=== PATIENT | male | born 1945 | race Caucasian/White ===

== ENCOUNTER → 2016-12-03 | Outpatient (CLI) | payer MEDICARE, BC ==
[2016-12-03 12:43] LABS: CHCM 33.5; Eosinophils # (A) 0.1 k/uL (0-0.7); HDW 2.96; RDW 13.5 % (11.5-15.5)
[2016-12-03 12:59] LABS: Basophils % (A) 0 %; CH 29.3; Eosinophils % (A) 2 %; HCT 35.5 % (39.0-53.0); HGB 11.8 gm/dL (13.0-17.5); Luc # (Auto) 0.16; Luc % (Auto) 3; Lymphocytes # (A) 0.9 k/uL (1.0-4.8); Lymphocytes % (A) 14 %; MCH 29.3 pg (25.0-35.0); MCHC 33.3 g/dL (31.0-37.0); Monocytes # (A) 0.3 k/uL (0-1.0); Monocytes % (A) 4 %; Neutrophils # (A) 4.6 k/uL (1.3-7.7); Neutrophils % (A) 77 %; RBC 4.03 m/uL (4.30-5.90); WBC 5.9 k/uL (3.8-10.6); WBC (Perox) 6.42
== END | disposition home or self-care (01) ==
LOC: LABPAT 11:45
PROVIDERS: ATTEND Urology
DX: Z01.810 Encounter for preprocedural cardiovascular examination (principal); N40.3 Nodular prostate with lower urinary tract symptoms; N13.8 Other obstructive and reflux uropathy; E11.9 Type 2 diabetes mellitus without complications; R35.0 Frequency of micturition; I10 Essential (primary) hypertension
CPT/HCPCS: 36415; 80053; 84439; 84443; 85025; 87077; 87086; 87186; 93005

== ENCOUNTER → 2016-12-03 | Outpatient (CLI) | payer MEDICARE, BC ==
[2016-12-03 12:44] LABS: ALT 48 U/L (21-72); AST 37 U/L (17-59); Alkaline Phosphatase 66 U/L (38-126); Anion Gap 15 mmol/L; Blood Urea Nitrogen 25 mg/dL (9-20); Calcium 9.6 mg/dL (8.4-10.2); Carbon Dioxide 25 mmol/L (22-30); Chloride 97 mmol/L (98-107); Glucose 197 mg/dL (74-99); Non-African American GFR(MDRD) >60 (>60 ml/min/1.73 sqM); Potassium 4.5 mmol/L (3.5-5.1); Sodium 137 mmol/L (137-145); Total Bilirubin 0.6 mg/dL (0.2-1.3); Total Protein 6.9 g/dL (6.3-8.2)
== END | disposition home or self-care (01) ==
LOC: LABWHC1 11:43
PROVIDERS: ATTEND Internal Medicine Endocrinology, Diabetes & Metabolism
DX: E11.65 Type 2 diabetes mellitus with hyperglycemia (principal)
CPT/HCPCS: 36415; 80053; 84439; 84443

== ENCOUNTER 2016-12-09 06:22 | Day surgery (SDC) | payer MEDICARE, BC ==
[2016-12-02 13:18] VITALS: BMI 35.2
[~2016-12-09 06:22] MED LIST: FAMOTIDINE 20 MG/2 ML VIAL IV PRN; GENTAMICIN 120 MG in SODIUM CHLORIDE 0.9% 100 ML IVPB ONE; HYDROmorphone 1 MG/ML 1 ML SYRINGE IVP PRN; LACTATED RINGERS 1,000 ML IV SCH; LIDOCAINE 1% 20 ML VIAL (10MG/ML) FOR IV START INTRADERMA PRN; ceFAZolin 2 GM in SODIUM CHLORIDE 0.9% 100 ML IVPB ONE
[2016-12-09 06:50] LABS: Glucose,Whole Blood 183 mg/dL (75-99)
[2016-12-09] MEDS ORDERED: fentaNYL (PF) 50 MCG/ML 2 ML AMP ONE (07:38)
[2016-12-09] MEDS ORDERED: PHENYLEPHRINE-0.9% NACL SYG 1 MG/10 ML SYRINGE ONE (07:38)
[2016-12-09] MEDS ORDERED: PROPOFOL 10 MG/ML 20 ML VIAL IV ONE (07:38)
[2016-12-09] MEDS ORDERED: MIDAZOLAM 2 MG/2 ML VIAL ONE (07:38)
[2016-12-09] MEDS ORDERED: LACTATED RINGERS 1,000 ML IV ONE (09:50)
[2016-12-09] MEDS: SODIUM CHLORIDE 0.9% IRRIGATIO 3,000 ML IRRIGATION SCH ×4 (10:00→19:23)
--- NOTE | 2016-12-09 10:21 | P.OP ---
Date of Procedure: 12/09/16 Preoperative Diagnosis: BPH with Obstruction, Urinary Retention Postoperative Diagnosis: Same Procedure(s) Performed: Cystoscopy, Bipolar Transurethral Resection of Prostate (TURP) Anesthesia: spinal Surgeon: Fidel Holliday Estimated Blood Loss (ml): 50 IV fluids (ml): 950 Pathology: other (prostate chips) Condition: stable Disposition: PACU Indications for Procedure: He is a 71 year-old male with progressive urge incontinence despite taking Hytrin and oxybutynin chloride. Cystoscopy revealed a high median prostatic bar , and urodynamic studies show excellent bladder function with detrusor pressures of 92 cm H20. He will thus undergo a TURP, as he has failed medical therapy. Operative Findings: Complete prostatic obstruction with bilobar configuration and high median bar. Description of Procedure: The patient was taken in the operating room and placed in the dorsolithotomy position after being given a spinal anesthetic, The external genitalia was prepped and draped sterilely. The 25-[place] ACMI resectoscope sheath was introduced into the bladder. The bladder was inspected. Both ureteral orifices were of normal anatomic location and configuration, and clear urine effluxed from both. No tumors or foreign bodies were seen. There was evidence of catheter cystitis. Examination of the prostate revealed complete obstruction with a bilobar configuration and a high median bar. Using the bipolar cutting loop, the prostatic floor was resected from the vesical neck up to the verumontanum. the lateral lobes were resected down to the surgical capsule. The resection of the floor floor of the prostate was then completed, proximal to the verumontanum. Lastly, any remaining anterior tissue was resected. Some remaining apical tissue was carefully resected, though this was likely incomplete given that the apex extended well beyond the verumontanum and care was taken not to extend the resection all the way to the external urinary sphincter. The resection was carried down to the surgical capsule in all 4 quadrants. The prostatic fossa was then carefully examined, and any areas of bleeding were controlled with electrocautery. Excellent hemostasis was attained. The resectoscope was withdrawn into the bulbous urethra. The external urinary sphincter remained intact. The prostatic fossa was open. The Zify evacuator was used to remove all prostate chips from the bladder. These were saved and sent for pathologic examination. The resectoscope was removed, and a 22 [place]ian, 3-Way Garza catheter was placed. The return was initially clear, but became bloody and thus continuous bladder irrigation was started using 0.9 normal saline. The return was essentially clear. The patient tolerated the procedure well was taken to the recovery room in stable condition.
[2016-12-09] MEDS ORDERED: ACETAMINOPHEN TAB 325 MG TAB PO PRN (10:22)
[2016-12-09] MEDS ORDERED: MAG HYDROX/AL HYDROX/SIMETH 30 ML CUP PO PRN (10:22)
[2016-12-09] MEDS ORDERED: BELLADONNA-OPIUM 16.2-60 MG 1 EACH SUPP RECTAL PRN (10:22)
[2016-12-09 11:00] LABS: Glucose,Whole Blood 175 mg/dL (75-99)
[2016-12-09] MEDS ORDERED: DEXTROSE 5%-0.45% NACL 1,000 ML IV SCH (11:00)
[2016-12-09] MEDS ORDERED: SODIUM CHLORIDE 0.9% IRRIG 3,000 ML BAG IRRIGATION SCH (11:00)
[2016-12-09] MEDS ORDERED: INSULIN LISPRO (humaLOG) 300 UNIT/3 ML VIAL SQ ONE (11:20)
[2016-12-09 12:03] LABS: Glucose,Whole Blood 194 mg/dL (75-99)
[2016-12-09] MEDS: INSULIN LISPRO (humaLOG) 300 UNIT/3 ML VIAL SQ SCH ×2 (13:19→17:53)
[2016-12-09 13:28] LABS: Hemoglobin A1C 6.6 % (4.2-6.1)
[2016-12-09] MEDS ORDERED: SODIUM CHLORIDE 0.9% IRRIGATIO 3,000 ML IRRIGATION SCH (13:45)
[2016-12-09 16:46] LABS: Glucose,Whole Blood 255 mg/dL (75-99)
[2016-12-09] MEDS ORDERED: INSULIN LISPRO (humaLOG) 300 UNIT/3 ML VIAL SQ SCH (17:30)
[2016-12-09] MEDS: metFORMIN 500 MG TAB PO SCH (17:54)
[2016-12-09] MEDS ORDERED: SODIUM CHLORIDE 0.45% IV SCH (19:30)
[2016-12-09] MEDS ORDERED: SODIUM CHLORIDE 0.45 % 1,000 ML IV SCH (19:30)
[2016-12-09] MEDS ORDERED: SODIUM CHLORIDE 0.45% 1,000 ML IV SCH (19:33)
[2016-12-09 20:44] LABS: Glucose,Whole Blood 188 mg/dL (75-99)
[2016-12-09] MEDS ORDERED: INSULIN GLARGINE 100 UNIT/ML 10 ML VIAL SQ SCH (21:00)
[2016-12-09] MEDS ORDERED: ATORVASTATIN 20 MG TAB PO SCH (21:00)
[2016-12-09] MEDS: OXYBUTYNIN CHLORIDE 5 MG TAB PO SCH (22:10)
[2016-12-09] MEDS: DOCUSATE 100 MG CAP PO SCH (22:10)
[2016-12-10 02:12] VITALS: RESP 16
[2016-12-10] MEDS ORDERED: PANTOPRAZOLE 40 MG TABLET PO SCH (07:30)
[2016-12-10 07:53] LABS: Glucose,Whole Blood 116 mg/dL (75-99)
[2016-12-10] MEDS: OXYBUTYNIN CHLORIDE 5 MG TAB PO SCH (08:20)
[2016-12-10] MEDS: DOCUSATE 100 MG CAP PO SCH (08:20)
[2016-12-10] MEDS: metFORMIN 500 MG TAB PO SCH (08:20)
[2016-12-10] MEDS: INSULIN LISPRO (humaLOG) 300 UNIT/3 ML VIAL SQ SCH ×4 (08:20→12:32)
--- NOTE | 2016-12-10 08:53 | P.DS ---
Providers Expected date of discharge: 12/10/16 Attending physician: Fidel Holliday Primary care physician: Josette Lopez Hospital Course: On the day of admission, the patient underwent an uncomplicated TURP. The postoperative course was unremarkable. He remained afebrile with stable vital signs. On the first postoperative day, the Garza catheter was draining clear yellow urine. Procedures: Cystoscopy, bipolar transurethral resection of prostate in 12/09/2016. Patient Condition at Discharge: Good Plan - Discharge Summary Discharge Medication List Furosemide [Lasix] 40 mg PO DAILY 08/25/16 [History] Insulin Aspart [NovoLOG Flexpen] 14 unit SQ AC-BID 08/25/16 [History] Insulin Aspart [NovoLOG Flexpen] 16 unit SQ AC-SUPPER 08/25/16 [History] Insulin Glargine [Lantus] 34 unit SQ QAM 08/25/16 [History] Insulin Glargine [Lantus] 56 unit SQ HS 08/25/16 [History] Multivitamins, Thera [Multivitamin] 1 tab PO DAILY 08/25/16 [History] RX: Aspirin [Adult Low Dose Aspirin EC] 81 mg PO DAILY 08/25/16 [History] RX: Lisinopril [Zestril] 2.5 mg PO DAILY 08/25/16 [History] RX: Metolazone [Zaroxolyn] 5 mg PO TUSA 08/25/16 [History] RX: Omeprazole 20 mg PO DAILY 08/25/16 [History] RX: Oxybutynin Chloride [Ditropan] 5 mg PO TID 08/25/16 [History] RX: Simvastatin [Zocor] 40 mg PO HS 08/25/16 [History] RX: metFORMIN HCL 1,000 mg PO BID 08/25/16 [History] Ascorbic Acid [Vitamin C] 500 mg PO DAILY 12/02/16 [History] Ferrous Sulfate [Feosol] 325 mg PO DAILY 12/02/16 [History] Follow up Appointment(s)/Referral(s): Fidel Holliday MD [STAFF PHYSICIAN] - 1 Week Activity/Diet/Wound Care/Special Instructions: Discharge home with Garza catheter. Resume preoperative home medications. My office will contact patient regarding follow-up. Discharge Disposition: HOME SELF-CARE
[2016-12-10] MEDS ORDERED: FERROUS SULFATE 325 MG TAB PO SCH (09:00)
[2016-12-10] MEDS ORDERED: LISINOPRIL 2.5 MG TAB PO SCH (09:00)
[2016-12-10] MEDS ORDERED: INSULIN GLARGINE 100 UNIT/ML 10 ML VIAL SQ SCH (09:00)
[2016-12-10] MEDS ORDERED: ASPIRIN 81 MG CHEW PO SCH (09:00)
[2016-12-10] MEDS ORDERED: FUROSEMIDE 40 MG TAB PO SCH (09:00)
[2016-12-10] MEDS ORDERED: ASCORBIC ACID 500 MG TAB PO SCH (09:00)
[2016-12-10 09:28] VITALS: BP 147/65; PULSE 75; TEMP 98.6
[2016-12-10] MEDS ORDERED: MULTIVITAMINS, THERA 1 EACH TAB PO SCH (12:00)
[2016-12-10 12:01] LABS: Glucose,Whole Blood 183 mg/dL (75-99)
[2016-12-11] MEDS ORDERED: METOLAZONE 5 MG TAB PO SCH (09:00)
== END 2016-12-10 15:51 | disposition home or self-care (01) ==
LOC: OR 06:22 → 3SUR 10:00 → OR 12-10 15:51
PROVIDERS: ATTEND Urology
DX: C61 Malignant neoplasm of prostate (principal); R33.8 Other retention of urine; I11.0 Hypertensive heart disease with heart failure; I50.9 Heart failure, unspecified; G47.33 Obstructive sleep apnea (adult) (pediatric); E11.9 Type 2 diabetes mellitus without complications; E78.00 Pure hypercholesterolemia, unspecified; K21.9 Gastro-esophageal reflux disease without esophagitis; M19.90 Unspecified osteoarthritis, unspecified site; R53.1 Weakness; S81.801S Unspecified open wound, right lower leg, sequela; N13.2 Hydronephrosis with renal and ureteral calculous obstruction; I25.2 Old myocardial infarction; Z88.5 Allergy status to narcotic agent; Z88.1 Allergy status to other antibiotic agents; Z88.8 Allergy status to other drugs, medicaments and biological substances; Z79.82 Long term (current) use of aspirin; Z79.4 Long term (current) use of insulin; Z79.84 Long term (current) use of oral hypoglycemic drugs; Z79.899 Other long term (current) drug therapy; Z86.73 Personal history of transient ischemic attack (TIA), and cerebral infarction without residual deficits; Z87.891 Personal history of nicotine dependence; Z83.3 Family history of diabetes mellitus; Z82.49 Family history of ischemic heart disease and other diseases of the circulatory system
CPT/HCPCS: 88305; 83036; 88342; 88341; 52601; J2250; J3010; J1580; J2370; J2704

== ENCOUNTER → 2016-12-28 | Outpatient (CLI) | payer MEDICARE, BC ==
[2016-12-28 08:24] LABS: Blood Urea Nitrogen 32 mg/dL (9-20); Non-African American GFR(MDRD) >60 (>60 ml/min/1.73 sqM)
--- NOTE | 2016-12-28 09:33 | CT ---
EXAMINATION TYPE: CT abdomen pelvis w con DATE OF EXAM: 12/28/2016 9:07 AM COMPARISON: NONE HISTORY: 71 year-old male history of Prostate cancer TECHNIQUE: Contiguous axial scanning of the abdomen and pelvis following administration of 100 ml Omn ipaque 300 IV contrast. Delayed images through the kidneys and coronal/sagittal reconstructions perf ormed. CT DLP: 2035 mGycm Automated exposure control for dose reduction was used. FINDINGS: Heart is borderline to mildly enlarged without pericardial effusion. There is hazy and strandy atelec tasis in both lower lungs without pleural effusion. Small hiatal hernia. No focal liver lesion or biliary ductal dilatation. Portal venous system is patent. There is cholelithiasis with a dominant 2.4 cm gallstone. No abnormal gallbladder distention. Adrenal glands, and pancreas show no gross abnormality. The spleen is mildly enlarged at 15.6 cm. Bilateral hypodense lesions within the kidneys. These measure up to 2.5 cm and are suggestive of cyst s. There is mild bilateral hydronephrosis and mild hydroureter on both sides. Scattered nonenlarged mesenteric lymph nodes are present. However, there is retroperitoneal lymphaden opathy measuring 1.4 cm in the retrocaval region at the level of the kidneys, 1.1 cm at the level of the aortic bifurcation on the right, 1.0 cm on the right common iliac chain, 1.6 cm along the proxima l right external iliac chain, and 2.2 cm on the right obturator chain. No dilated small bowel, free fluid, or free air. Normal appendix. Oral contrast has progressed to the hepatic flexure. There is moderate stool burden without pericolonic inflammatory change. There is moderate circumferential bladder wall thickening with mild perivesical fat stranding. Query prior prostate surgery or TURP. No abnormal fluid collection in the pelvis. Bones: Large heterotopic ossifications within the left greater than right gluteal subcutaneous fat. D egenerative changes mid to lower lumbar spine. No osseous destructive process. No suspicious scleroti c lesion seen. IMPRESSION: 1. QUESTION PRIOR PROSTATE SURGERY OR TURP. 2. PERICAVAL LYMPHADENOPATHY IN THE RETROPERITONEUM MEASURING UP TO 1.4 CM AND ALONG THE RIGHT SENIOR COBOL DEVELOPER AL ILIAC (1.6 CM) AND OBTURATOR CHAINS (2.2 CM). FINDINGS SUSPICIOUS FOR METASTATIC LYMPHADENOPATHY. 3. MODERATE CIRCUMFERENTIAL BLADDER WALL THICKENING MAY REFLECT CHRONIC BLADDER WALL HYPERTROPHY. HOW EVER, GIVEN THE SURROUNDING FAT STRANDING; CORRELATE TO EXCLUDE CYSTITIS. 4. THERE IS MILD BILATERAL HYDRONEPHROSIS AND HYDROURETER. 5. CHOLELITHIASIS
--- NOTE | 2016-12-28 15:32 | NM ---
EXAMINATION TYPE: NM bone scan whole body DATE OF EXAM: 12/28/2016 2:05 PM COMPARISON: CT abdomen and pelvis earlier today. HISTORY: Prostate cancer Delayed whole-body scanning was performed following the injection of 27.5 mCi Tc 99m MDP. Images acq uired 5 hours post injection. Whole body images are acquired as well as images of the thorax abdomen and pelvis are acquired in multiple projections FINDINGS: Small area of increased uptake anterolateral left lower rib corresponds to subtle sclerotic area on CT could reflect early metastatic disease versus healing fracture. Faint area of increased u ptake same level anterolateral right rib is noted without definitive corresponding CT abnormality. Si milar area of abnormal uptake left sternoclavicular joint is noted. IMPRESSION: As above, 2-3 areas of nonspecific increased uptake, osseous metastatic disease felt unli evans but not excluded entirely excluded. Consider short-term whole body bone scan follow-up in 3-6 mo nths time.
== END | disposition home or self-care (01) ==
LOC: RADCTMAIN 07:45
PROVIDERS: ATTEND Urology
DX: C61 Malignant neoplasm of prostate (principal); R59.0 Localized enlarged lymph nodes; N32.89 Other specified disorders of bladder; N13.30 Unspecified hydronephrosis; K80.20 Calculus of gallbladder without cholecystitis without obstruction
CPT/HCPCS: 82565; 84520; 74177; 78306; A9503; Q9967

== ENCOUNTER → 2020-04-29 | Outpatient (CLI) | payer MEDICARE, BC ==
--- NOTE | 2020-04-29 14:05 | NM ---
EXAMINATION TYPE: NM bone scan whole body DATE OF EXAM: 04/29/2020 COMPARISON: 12/28/2016 HISTORY: Prostate cancer. Follow-up exam. Delayed whole-body scanning was performed following the injection of 25.1 mCi Tc 99m MDP. Images acq uired 3 hours post injection. FINDINGS: Increase in osseous metastasis is demonstrated in comparison to the prior of 12/28/2016. Metastasis is now multifocal involving the cranium, maxilla, mandible, left shoulder, sternum, right clavicle, nume cris ribs, thoracic spine, lumbar spine, cervical spine, pelvis, right femur, left sacroiliac joint a nd questionably left acetabulum. IMPRESSION: Progression of disease. Diffuse multifocal osseous metastasis of both the axial and appen dicular skeleton as discussed above.
== END | disposition home or self-care (01) ==
LOC: RADNMMAIN 10:14
PROVIDERS: ATTEND Urology
DX: C79.51 Secondary malignant neoplasm of bone (principal); C61 Malignant neoplasm of prostate; Z88.5 Allergy status to narcotic agent; Z88.1 Allergy status to other antibiotic agents
CPT/HCPCS: 78306; A9503

== ENCOUNTER → 2020-06-13 | Outpatient (CLI) | payer MEDICARE, BC ==
--- NOTE | 2020-06-13 17:34 | CT ---
EXAMINATION TYPE: CT ChestAbdPelvis w con DATE OF EXAM: 06/13/2020 COMPARISON: CT abdomen pelvis 12/28/2016. Nuclear medicine bone scan 04/29/2020. HISTORY: Prostate cancer, obs. suspected METS CT DLP: 2971.1 mGycm Automated exposure control for dose reduction was used. CONTRAST: CT scan of the chest, abdomen and pelvis is performed with Oral Contrast and with IV Contrast, patien t injected with 80 mL of Isovue 300. FINDINGS: LUNGS: Bilateral atelectasis. There is no concerning lung parenchymal mass or nodule identified. Th ere is no pleural effusion or pneumothorax seen. The tracheobronchial tree is patent. MEDIASTINUM: There are no greater than 1 cm hilar or mediastinal lymph nodes. Cardiomegaly. Calcified coronary artery disease. No pericardial effusion is seen. OTHER: Left-sided gynecomastia. LIVER/GB: No liver lesion. Cholelithiasis. No biliary ductal dilatation. PANCREAS: No significant abnormality is seen. SPLEEN: No significant abnormality is seen. ADRENALS: No significant abnormality is seen. KIDNEYS: Bilateral renal cysts. There is mild left hydronephrosis and moderate diffuse left hydrouret er. There is mild hydroureter on the right of the mid to distal ureter. BOWEL: No evidence of obstruction. PERITONEUM: No free air is visualized. No free fluid. Mild periureteral haziness of the mid ureters. ADENOPATHY: Multiple new enlarged retroperitoneal lymph nodes, the largest of which measures up to 1 .4 cm in shortest axial dimension periaortic on the left (3:79). PELVIS: There is increased/new 2.9 x 4.9 cm lobulated exophytic bladder mass of the base of the urina ry bladder, with decreased soft tissue in the region of the prostate versus 2017. VASCULATURE: No abdominal aortic aneurysm. Moderate calcified atherosclerotic disease. MUSCULOSKELETAL: Incompletely visualized right hip femoral nail incompletely visualized distal fract ure deformity. Multifocal new osteoblastic metastases primarily of the pelvis and spine. There is ost eoporosis. Moderate compression deformity of the superior endplate of L3 with retropulsion and likely moderate narrowing of the canal spinal canal. Multilevel degenerative changes of the spine. IMPRESSION: 1. Exophytic mass at the base of the urinary bladder measuring 2.9 x 4.9 cm, with obstructive bilate ral hydroureter and mild left hydronephrosis. Findings may represent recurrent prostate cancer invadi ng the urinary bladder versus urothelial primary. Appearance of the prostate gland may be postsurgica l or posttreatment related. 2. New retroperitoneal lymphadenopathy versus 2017 comparison. 3. New multifocal sclerotic osseous metastases, corresponding with 04/29/2020 bone scan comparison. 4. There is an age-indeterminate moderate L3 vertebral body compression deformity, with retropulsion and moderate narrowing of the spinal canal. Recommend clinical correlation for acute lower back pain . Findings may be related to osteoporosis more likely than pathological fracture.
== END | disposition home or self-care (01) ==
LOC: RADCTMAIN 10:52
PROVIDERS: ATTEND Internal Medicine Hematology & Oncology
DX: C79.51 Secondary malignant neoplasm of bone (principal); C61 Malignant neoplasm of prostate; N13.30 Unspecified hydronephrosis; N13.4 Hydroureter; Z88.5 Allergy status to narcotic agent; Z88.8 Allergy status to other drugs, medicaments and biological substances
CPT/HCPCS: 82565; 84520; 71260; 74177; 36415; Q9967